=== PATIENT | male | born 1950 | race Caucasian/White ===

== ENCOUNTER 2018-02-06 08:05 | Emergency (ER) | payer MEDICARE, OTHER ==
[2018-02-06 08:14] VITALS: TEMP 97.5
[2018-02-06] MEDS ORDERED: SODIUM CHLORIDE 0.9% (FLUSH) 10 ML SYG IV PRN (08:19)
[2018-02-06] MEDS ORDERED: ONDANSETRON INJ 4 MG/2 ML VIAL IV ONE ×2 (08:19→09:05)
[2018-02-06] MEDS ORDERED: ASPIRIN TABLET 325 MG TAB PO ONE (08:19)
[2018-02-06] MEDS ORDERED: NITROGLYCERIN 0.4 MG 25 EA TAB SL ONE (08:19)
--- NOTE | 2018-02-06 08:26 | ED.PDOC ---
History of Present Illness - General Chief Complaint: Cardiovascular Problem Stated Complaint: chest pain Time Seen by Provider: 02/06/18 08:13 Source: RN notes reviewed, EMS notes reviewed Additional Information: 67 YEAR OLD WHITE MALE FROM [facility] HERE BROUGHT BY EMS FOR EVALUATION OF CHEST PAIN THAT LASTED 30 MIN RELIEVED AFTER 4 NTG HIS SB SCORE IS 3 HE HAD NO RADIATION TO THE ARM NECK OR JAW HE DID GET NAUSEATED HAS HISTORY OF CABAG PACEMAKER STENT SUPPORTED ANGIOPLASTY HTN DISLIPIDEMIA ATRIAL FIBRILLATION SP ABLATION - History of Present Illness Timing/Duration: 1/2 hour Severity/Quality: moderate Location: substernal Chest Pain Radiation: no radiation Prior Chest Pain/Cardiac Workup: cardiac cath, heart attack Improving Factors: medication Nitro Today/Relief: 0.4 mg x 4, complete relief Aspirin Treatment Today: 81 mg x 4, provided by ED Allergies/Adverse Reactions: Allergies NO KNOWN ALLERGY Allergy (Verified 02/06/18 08:13) Review of Systems - Review of Systems Constitutional: States: no symptoms reported EENTM: States: no symptoms reported Respiratory: States: no symptoms reported Cardiology: States: see HPI Gastrointestinal/Abdominal: States: no symptoms reported Genitourinary: States: no symptoms reported Musculoskeletal: States: no symptoms reported Skin: States: no symptoms reported Neurological: States: no symptoms reported Endocrine: States: no symptoms reported Hematologic/Lymphatic: States: no symptoms reported Past Medical History (General) - Patient Medical History Hx Cardiac Disorders: Yes - pacemaker, CABG, stents, A fib, aortic aneurysm Hx Congestive Heart Failure: No Surgical History: other - Vaccination History Hx Influenza Vaccination: Yes Hx Pneumococcal Vaccination: Yes - Social History Hx Tobacco Use: No Family Medical History - Family History Father Family History: Unknown Living Status: Unknown Physical Exam - Physical Exam General Appearance: Alert, Comfortable Eyes, Ears, Nose, Throat Exam: PERRL/EOMI, normal ENT inspection, TMs normal Neck: non-tender, full range of motion, supple Respiratory: chest non-tender, lungs clear, normal breath sounds, no respiratory distress, no accessory muscle use Cardiovascular/Chest: normal peripheral pulses, no edema, no gallop, no JVD, no murmur Gastrointestinal/Abdominal: normal bowel sounds, non tender, soft, no organomegaly, no pulsatile mass Extremity: normal range of motion, non-tender Neurologic: petal shaper hand II-XII nml as tested, no motor/sensory deficits, alert, normal mood/affect Progress - Results/Orders Results/Orders: DISCUSSED WITH DR MUNOZ 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 Copy, Patient Portal Self Enrollment Instructions: DI for Chest Pain Diet: resume usual diet
--- NOTE | 2018-02-06 08:48 | RAD ---
EXAM DESCRIPTION: Chest,1 View CLINICAL HISTORY: Chest Pain COMPARISON: Chest radiograph dated August 27, 2014 Findings: Single upright portable frontal view of the chest. Postsurgical changes with median sternotomy wires. Dual-lead left chest cardiac pacemaker in similar position. Cardiac silhouette and pulmonary vascularity are within normal limits. Lungs are clear without focal consolidative infiltrates. Bilateral costophrenic angles are sharp. No pneumothorax. IMPRESSION: Overall unchanged examination relative to August 27, 2014. No radiographic evidence for acute cardiopulmonary process. Electronically signed by: Enrico Hu MD 02/06/2018 8:46 AM CDT
[2018-02-06 13:36] VITALS: BP 146/82; O2SAT 98
== END 2018-02-06 13:00 | disposition home or self-care (01) ==
LOC: ER 08:05
DX: I20.9 Angina pectoris, unspecified (principal); I48.91 Unspecified atrial fibrillation; I71.9 Aortic aneurysm of unspecified site, without rupture; I10 Essential (primary) hypertension; E78.5 Hyperlipidemia, unspecified; Z95.1 Presence of aortocoronary bypass graft; Z98.61 Coronary angioplasty status; Z95.0 Presence of cardiac pacemaker
CPT/HCPCS: 36415; 71045; 80048; 82550; 82553; 83880; 84484; 85025; 85610; 85730; 93005; J2405

== ENCOUNTER 2018-05-29 13:38 | Emergency (ER) | payer MEDICARE, OTHER ==
[2018-05-29] MEDS ORDERED: ASPIRIN TABLET 325 MG TAB PO ONE (14:21)
[2018-05-29] MEDS ORDERED: SODIUM CHLORIDE 0.9% (FLUSH) 10 ML SYG IV PRN (14:21)
--- NOTE | 2018-05-29 14:55 | RAD ---
EXAM DESCRIPTION: Chest,1 View CLINICAL HISTORY: 67 years Male, chest pain/sob COMPARISON: Previous study February 06, 2018 TECHNIQUE: AP portable chest. FINDINGS: Heart size is large with normal pulmonary vascularity. Compared to previous study, heart size is unchanged. Cardiac pacer is in place. No consolidating infiltrate. No pulmonary mass or worrisome nodule. No pneumothorax or pleural effusion. Bones are unremarkable. IMPRESSION: Large heart without congestive failure. Electronically signed by: Paxton Holguin MD 05/29/2018 2:54 PM CDT
[2018-05-29 15:31] VITALS: O2SAT 96
--- NOTE | 2018-05-29 16:05 | ED.PDOC ---
History of Present Illness - General Chief Complaint: Chest Pain/MA Stated Complaint: chest pain Time Seen by Provider: 05/29/18 14:21 Source: patient Exam Limitations: no limitations - History of Present Illness Initial Comments: PT PRESENTS TO THE ED VIA EMS FOR COMPLAINT OF CHEST PAIN AND SOB THAT OCCURRED WHILE AMBULATING IN HIS HOME. PT HAS AN EXTENSIVE CARDIAC HISTORY WHICH INCLUDES A MECHANICAL VALVE REPLACEMENT, MULTIPLE CARDIAC STENTS AND QUINTUPLE BYPASS. PT STATES THAT HE TOOK A SL NTG WHICH DID NOT PROVIDE RELIEF OF SYMPTOMS. PT STATES THAT HE TOOK A SECOND NTG WHICH RELIEVED THE PAIN UPON EMS ARRIVAL. PT DENIES PAIN CURRENTLY. Timing/Duration: resolved prior to arrival Severity/Quality: moderate, pressure Location: substernal, central Chest Pain Radiation: no radiation Activities at Onset: activity Prior Chest Pain/Cardiac Workup: heart attack, other - KNOWN CAD Improving Factors: immobilization, rest Worsening Factors: movement Nitro Today/Relief: 0.4 mg x 2 Aspirin Treatment Today: provided at home Associated Symptoms: shortness of breath Allergies/Adverse Reactions: Allergies NO KNOWN ALLERGY Allergy (Verified 02/06/18 08:13) Review of Systems - Review of Systems Constitutional: Denies: chills, fever EENTM: Denies: nose congestion, throat pain Respiratory: States: see HPI, short of breath. Denies: cough Cardiology: States: see HPI, chest pain. Denies: palpitations, syncope Gastrointestinal/Abdominal: Denies: nausea, vomiting Genitourinary: Denies: dysuria, frequency Musculoskeletal: Denies: joint pain, joint swelling, muscle pain Skin: Denies: dryness, lesions Neurological: Denies: headache, numbness Endocrine: States: no symptoms reported Hematologic/Lymphatic: States: no symptoms reported Past Medical History (General) - Patient Medical History Hx Stroke: No Hx Cardiac Disorders: Yes - pacemaker, CABG, stents, A fib, aortic aneurysm Hx Congestive Heart Failure: No Hx Diabetes: No Hx Gastroesophageal Reflux: Yes Surgical History: coronary bypass surgery - Vaccination History Hx Influenza Vaccination: Yes Hx Pneumococcal Vaccination: Yes - Social History Hx Tobacco Use: No Family Medical History - Family History Father Family History: Unknown Living Status: Unknown Physical Exam - Physical Exam General Appearance: Alert, Comfortable, Well Groomed, Well Hydrated, Well Nourished Eyes, Ears, Nose, Throat Exam: normal ENT inspection Neck: supple, normal inspection Respiratory: lungs clear, normal breath sounds, no respiratory distress Cardiovascular/Chest: regular rate, rhythm, other - MECHANICAL MURMUR Gastrointestinal/Abdominal: non tender, soft Extremity: non-tender, normal inspection, no pedal edema Neurologic: alert, normal mood/affect, oriented x 3 Skin Exam: normal color, warm/dry Progress - Progress Progress: 05/29/18 16:00 PT RESTING COMFORTABLY, NO RETURN OF CHEST PAIN WHILE AT REST IN THE ED. LABS AND DIAGNOSTICS DISCUSSED. PT AGREES WITH PLAN TO TRANSFER TO [facility]. - Results/Orders Results/Orders: Laboratory Tests 05/29/18 14:40 WBC 7.6 RBC 4.40 L Hgb 13.9 L Hct 40.0 L MCV 90.9 MCH 31.5 H MCHC 34.8 RDW 15.4 H Plt Count 182 MPV 8.6 Absolute Neuts (auto) 5.90 Absolute Lymphs (auto) 0.90 L Absolute Monos (auto) 0.80 Absolute Eos (auto) 0.00 Absolute Basos (auto) 0.00 Neutrophils % 77.3 Lymphocytes % 11.9 L Monocytes % 10.0 H Eosinophils % 0.3 L Basophils % 0.5 PT 32.1 H* INR 2.800 PTT (SP) 36.9 H Sodium 136 Potassium 3.8 Chloride 100 L Carbon Dioxide 29 Anion Gap 10.8 L BUN 21 H Creatinine 1.40 H BUN/Creatinine Ratio 15.0 Random Glucose 102 Serum Osmolality 275.1 Calcium 9.1 Magnesium 1.5 L Total Bilirubin 0.7 Direct Bilirubin 0.2 Indirect Bilirubin 0.5 AST 24 ALT 15 Alkaline Phosphatase 37 L Creatine Kinase 94 CK-MB (CK-2) 2.4 CK-MB (CK-2) % 2.55 Troponin I 0.01 B-Natriuretic Peptide 299.0 H* Serum Total Protein 6.3 L Albumin 3.8 - EKG/XRAY/CT EKG: Sinus - DEMAND PACEMAKER @70BPM, WITH FREQUENT PVCS, NL AXIS, RBBB, ST depression - WITH T WAVE INVERSIONS IN 1 AND AVL, Unchanged from - 02/06/18 XRAY: chest - CARDIOMEGALY WITHOUT FAILURE, PER RAD Departure - Departure Clinical Impression: Coronary artery disease, Unstable angina pectoris due to coronary arteriosclerosis Time of Disposition: 16:17 Disposition: Transfer to Hospital Condition: Fair Departure Forms: ED Discharge - Pt. Copy, Patient Portal Self Enrollment Transfer to Outside Facility - Transfer Information Accepting Provider:: DR. GARCIAS Accepting Facility: [facility] Reason for Transfer: required specialist not available - CARDIOLOGY (DR. MUNOZ)
[2018-05-29 16:30] VITALS: BP 112/61; TEMP 97.2
== END 2018-05-29 17:00 | disposition short-term general hospital (02) ==
LOC: ER 13:38
DX: I20.0 Unstable angina (principal); I11.9 Hypertensive heart disease without heart failure; I48.91 Unspecified atrial fibrillation; Z95.0 Presence of cardiac pacemaker; Z95.1 Presence of aortocoronary bypass graft; Z98.61 Coronary angioplasty status

== ENCOUNTER 2019-05-15 10:45 | Emergency (ER) | payer MEDICARE, OTHER ==
--- NOTE | 2019-05-15 10:55 | ED.PDOC ---
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 stated has 55 % EF.Denies diaphoresis,SOB,dizziness. Timing/Duration: 1-3 hours Severity: moderate Location: other - left arm Activities at Onset: activity Prior Chest Pain/Cardiac Workup: angina, cardiac cath, stress test, thallium scan Improving Factors: rest Worsening Factors: movement Nitro Today/Relief: 0.4 mg x 3, complete relief Aspirin Treatment Today: 81 mg x 4 Associated Symptoms: other - see hpi Allergies/Adverse Reactions: Allergies NO KNOWN ALLERGY Allergy (Verified 02/06/18 08:13) Review of Systems - Review of Systems Constitutional: States: no symptoms reported Respiratory: States: no symptoms reported Cardiology: States: see HPI Gastrointestinal/Abdominal: States: no symptoms reported Genitourinary: States: no symptoms reported Musculoskeletal: States: no symptoms reported Skin: States: no symptoms reported Neurological: States: no symptoms reported All other Systems: Reviewed and Negative, No Change from Baseline Past Medical History (General) - Patient Medical History Hx Stroke: No Hx Cardiac Disorders: Yes - pacemaker, CABG, stents, A fib, aortic aneurysm Hx Congestive Heart Failure: No Hx Diabetes: No Hx Gastroesophageal Reflux: Yes Surgical History: coronary bypass surgery, pacemaker, other - knee - Vaccination History Hx Influenza Vaccination: Yes Hx Pneumococcal Vaccination: Yes - Social History Hx Tobacco Use: No Hx Physical Abuse: No Hx Emotional Abuse: No Hx Suspected Abuse: No Family Medical History - Family History Father Family History: Unknown Living Status: Unknown Hx Family Asthma: Yes - brother-copd Hx Family Congestive Heart Failure: Yes - mom Hx Cardiac Disease: Yes - brother Hx Family Cancer: Yes - dad-pancreas Physical Exam - Physical Exam General Appearance: Alert, Comfortable, No apparent distress Eyes, Ears, Nose, Throat Exam: normal ENT inspection, TMs normal Neck: non-tender, full range of motion, supple, normal inspection Respiratory: chest non-tender, lungs clear, normal breath sounds, no respiratory distress Cardiovascular/Chest: normal peripheral pulses, regular rate, rhythm, no murmur, other - cfisp heart valve Peripheral Pulses: radial,right: 2+, radial,left: 2+ Gastrointestinal/Abdominal: normal bowel sounds, non tender, soft, no organomegaly Extremity: no pedal edema, no calf tenderness Neurologic: alert, oriented x 3, abnormal gait Skin Exam: warm/dry Progress - Progress Progress: 05/15/19 12:10 Vital Signs - 8 hr 05/15/19 05/15/19 05/15/19 10:57 11:31 11:45 Temperature 96.2 F L Pulse Rate [ 67 60 66 Left Brachial] Respiratory 20 18 Rate Blood Pressure 126/81 109/65 [Left Arm] O2 Sat by Pulse 98 97 Oximetry 05/15/19 12:00 Temperature 96.9 F L Pulse Rate [ 69 Left Brachial] Respiratory 18 Rate Blood Pressure 107/63 [Left Arm] O2 Sat by Pulse 96 Oximetry - Results/Orders Results/Orders: Laboratory Tests 05/15/19 05/15/19 11:00 13:30 WBC 6.9 RBC 4.84 Hgb 14.1 Hct 41.9 L MCV 86.5 MCH 29.1 MCHC 33.6 RDW 15.8 H Plt Count 207 MPV 9.1 Absolute Neuts (auto) 4.80 Absolute Lymphs (auto) 1.20 Absolute Monos (auto) 0.80 Absolute Eos (auto) 0.10 Absolute Basos (auto) 0.00 Neutrophils % 69.2 Lymphocytes % 16.7 L Monocytes % 12.1 H Eosinophils % 1.3 Basophils % 0.7 PT 22.0 H INR 2.22 H PTT (SP) 31.4 Sodium 132 L Potassium 4.4 Chloride 102 Carbon Dioxide 22 Anion Gap 12.4 BUN 21 H Creatinine 1.27 BUN/Creatinine Ratio 16.5 Random Glucose 100 Serum Osmolality 267.6 L Calcium 9.1 Magnesium 1.5 L Total Bilirubin 0.8 Direct Bilirubin 0.1 Indirect Bilirubin 0.7 AST 29 ALT 17 Alkaline Phosphatase 51 Creatine Kinase 96 CK-MB (CK-2) 2.9 CK-MB (CK-2) % Not Reportable Troponin I < 0.02 < 0.02 B-Natriuretic Peptide 97.7 Serum Total Protein 7.0 Albumin [address] Hoff his bacteriologist food lab result.ekg,cxr nothing could be done much at this time knows patient very well advise to take easy not much exertional activities advised patient to call his office for follow up.Also discuss all test result with patient - EKG/XRAY/CT Comments: HR-61 pacemaker XRAY: chest - cardiomegaly no CHF Departure - Departure Clinical Impression: Chest pain Qualifiers: Chest pain type: chest pain due to myocardial ischemia Ischemic chest pain type: unspecified angina pectoris type Qualified Code(s): I25.9 - Chronic ischemic heart disease, unspecified Time of Disposition: 14:34 Disposition: Discharge to Home or Self Care Condition: Fair Departure Forms: ED Discharge - Pt. Copy, Patient Portal Self Enrollment Instructions: DI for Chest Pain Additional Instructions: Continue with all home medications;Need to Call Senior Data Warehouse Developer Dr. Hoff for follow up in AM;Return to Emergency room as needed
[2019-05-15] MEDS ORDERED: ASPIRIN (CHEWABLE) 81 MG TAB PO ONE (10:56)
--- NOTE | 2019-05-15 11:29 | RAD ---
Findings: Frontal chest radiograph. Comparison May 29, 2018. Left chest wall cardiac conduction device. Median sternotomy. Cardiomegaly. No pulmonary vascular congestion. No pneumothorax. No pleural effusion. No focal consolidation or suspicious pulmonary nodule. Soft tissues are unremarkable. No acute osseous abnormality. IMPRESSION: Cardiomegaly. No CHF. Electronically signed by: Javier Choe MD 05/15/2019 11:27 AM CDT
[2019-05-15] MEDS ORDERED: MAGNESIUM SULFATE PREMIX 2GM 2 GM in PREMIX BAG 1 BAG IVPB ONE (12:26)
[2019-05-15] MEDS ORDERED: MAGNESIUM SULFATE PREMIX 2GM 50 ML IVPB ONE (12:28)
[2019-05-15 15:07] VITALS: BP 103/66; TEMP 97.2; O2SAT 99
== END 2019-05-15 15:05 | disposition home or self-care (01) ==
LOC: ER 10:45
DX: I25.9 Chronic ischemic heart disease, unspecified (principal); R07.9 Chest pain, unspecified; I48.91 Unspecified atrial fibrillation; K21.9 Gastro-esophageal reflux disease without esophagitis; Z95.0 Presence of cardiac pacemaker; Z95.5 Presence of coronary angioplasty implant and graft; Z95.2 Presence of prosthetic heart valve
CPT/HCPCS: 36415; 71045; 80048; 80076; 82550; 82553; 83880; 84484; 85025; 85610; 85730; 93005; J3475